=== PATIENT | male | born 1950 | race Caucasian/White ===

== ENCOUNTER 2021-03-06 11:33 | Inpatient (IN) | payer MEDICARE, BC ==
[2021-03-06] VITALS (11 sets, daily range): BP systolic 129–185; BP diastolic 73–99; BMI 34.5
[~2021-03-06] VITALS: Ht 172.7 cm; Wt 97.5 kg
--- NOTE | ~2021-03-06 | EC ---
PATIENT:ELVA ROSENBAUM DATE OF SERVICE: 03/06/21 SEX: M MEDICAL RECORD: [id number] DATE OF : 54 LOCATION:[place] [address] AGE OF PATIENT: 70 ADMISSION DATE: 03/06/21 REFERRING PHYSICIAN: INTERPRETING PHYSICIAN: WESTLEY GARCIA MD ECHOCARDIOGRAM REPORT ECHO CHARGES 4 ECHO COMPLETE Date: 03/07/21 CLINICAL DIAGNOSIS: CHF H/O AVR ECHOCARDIOGRAPHIC MEASUREMENTS (adult normal given) AC root (d.<3.7cm) 2.7 cm LV Septum d (<1.2 cm> 1.5 cm Valve Excursion 1.3 cm LV Septum (systole) 2.2 cm Left Atria (s.<4.0cm> 4.5 cm LVPW d(<1.2cm) 1.4 cm RV (d.<2.3cm) 2.7 cm LVPW (sytole) 2.3 cm LV diastole(<5.6CM) 5.9 cm MV E-F(>70mm/sec) cm LV systole 3.4 cm LVOT Diameter 1.8 cm MV exc.(>10mm) cm Est.ejection fraction (50-75%) % DOPPLER: LVIT cm/sec A 66.0 cm/sec E 84.0 cm/sec LA cm/sec RVSP 32.3 mmHg LVOT 95.0 cm/sec AOP1/2T m/s Asc. Ao 243 cm/sec RVOT 92.0 cm/sec RA cm/sec PA 129 cm/sec AV Gradient Peak 24.0 mmHg AV Mean 12.0 mmHg AV Area 1.0 cm MV Gradient Peak 3.8 mmHg MV Mean 1.5 mmHg MV Area cm COMMENTS: Towel Hemmer: 1 GEORGE GOLDSMITHOE Finisher Tailor Apprentice: 5 Dr. Garcia TAPE# PACS Pericardial Effusion N DATE OF SERVICE: CLINICAL diagnoses: 1. Congestive heart failure. 2. History of aortic valve replacement. INTERPRETATION: Technically difficult study, overall normal LV chamber size with moderate global LV contractile dysfunction. Left atrial chamber mildly dilated. Right atrium and right ventricular chamber size and function appears normal. Aortic valve/prosthesis is not well visualized, but appears normal. ECHOCARDIOGRAM REPORT [id number] ELVA ROSENBAUM Trace aortic regurgitation. Mitral valve appears normal. Trace mitral regurgitation. Tricuspid valve appears normal. Trace tricuspid regurgitation. Pulmonic valve not well visualized. Trivial pulmonary regurgitation. No pericardial effusion visualized. IMPRESSION: Technically difficult study, overall moderate global left ventricular contractile dysfunction with an ejection fraction of 40%. TRANSINT:[id number] Voice Confirmation ID: [id number] DOCUMENT ID: [id number] WESTLEY GARCIA MD CC: [id number] DICTATION DATE: 03/07/21 1342 COAT JOINER: 03/07/212023 ADM IN [facility] [address] [place] [id number]
--- NOTE | 2021-03-06 15:30 | NUR ---
ADMITTED FROM OSH. WAS ON BIPAP 40%, TITRATED TO 6LNC AND IS SATTING 97%. PER EMS, HE IS DOING MUCH BETTER THAN THIS AM. EKG OBTAINED S/T ST DEPRESSION ON MONITOR. DR. CASANOVA ROUNDED AND ORDERS RECEIVED.
--- NOTE | 2021-03-06 16:12 | NUR ---
DR. TOMLINSON PAGED PER ORDER AND CONSULTED. ORDERS RECEIVED.
--- NOTE | 2021-03-06 16:13 | NUR ---
CARDIOLOGY PAGED. AWAITING CALL BACK.
--- NOTE | 2021-03-06 16:16 | NUR ---
EKG DONE, SHOWS NSR W/ LVH.
--- NOTE | 2021-03-06 16:23 | NUR ---
DR. MORRIS CALLED AND CONSULTED. DR. TOMLINSON WANTED TO CLARIFY LASIX. DR. MORRIS ORDERS LASIX AT HIGHER DOSE IV.
[2021-03-06 16:24] LABS: TROPONIN-I 0.058 ng/mL (0.000-0.060)
[2021-03-06] MEDS ORDERED: ELIQUIS5 MG PO (18:11)
[2021-03-06] MEDS ORDERED: GLIMEPIRIDE4 MG PO (18:12)
[2021-03-06] MEDS ORDERED: TRICOR145 MG PO (18:12)
[2021-03-06] MEDS ORDERED: LEVOXYL25 MCG PO (18:14)
[2021-03-06] MEDS ORDERED: LEVOXYL25 MCG (18:14)
[2021-03-06] MEDS ORDERED: TRICOR145 MG (18:14)
[2021-03-06] MEDS ORDERED: JARDIANCE25 MG (18:14)
[2021-03-06] MEDS ORDERED: CEPHALEXIN250 M1 (18:14)
[2021-03-06] MEDS ORDERED: LANTUS SOL100 UNIT/2 (18:14)
[2021-03-06] MEDS ORDERED: SINGULAIR10 MG PO (18:15)
[2021-03-06] MEDS ORDERED: FUROSEMIDE20 MG PO (18:15)
[2021-03-06] MEDS ORDERED: K-DUR20 MEQ PO (18:16)
[2021-03-06] MEDS ORDERED: LOPRESSOR25 MG PO (18:16)
[2021-03-06] MEDS ORDERED: NEXIUM20 MG PO (18:17)
[2021-03-06] MEDS ORDERED: SYNTHROID25 MCG PO (18:17)
[2021-03-06] MEDS ORDERED: BAYER CHEWABLE81 MG PO (18:17)
[2021-03-07] VITALS (23 sets, daily range): BP systolic 103–157; BP diastolic 56–102
--- NOTE | 2021-03-07 01:35 | NUR ---
PT C/O "FEELING CLAUSTROPHOBIC" WHILE USING BIPAP, STATES "I JUST CAN'T DO IT ANYMORE. I'VE NEVERE BEEN ABLE TO WEAR THE MASKS." SWITCHED TO 4.5L O2 NC, SAT 95-96%.
[2021-03-07 04:20] LABS: BASOPHILS 0.6 % (0-2); EOSINOPHILS 0.3 % (0-7); HEMATOCRIT 30.3 % (42.0-54.0); LYMPHOCYTES 11.8 % (15-50); MCH 29.2 pg (26.0-34.0); MCHC 32.9 g/dL (31.0-37.0); MCV 88.7 fL (80.0-100.0); MEAN PLATELET VOLUME 7.3 fL (7.4-10.4); NEUTROPHILS 79.3 % (40-80); PLATELET COUNT 249 10x3/uL (130-400); RBC 3.41 10x6/uL (4.20-6.10); WBC 7.4 10x3/uL (4.8-10.8)
[2021-03-07 04:42] LABS: ALBUMIN 2.6 g/dL (3.4-5.0); ANION GAP 8.1 mmol/L (8-16); BILIRUBIN - TOTAL 0.19 mg/dL (0.2-1.3); CALCIUM 8.1 mg/dL (8.5-10.1); CARBON DIOXIDE 33.5 mmol/L (21.0-32.0); CREATININE - SERUM 5.2 mg/dL (0.6-1.3); POTASSIUM - SERUM 5.6 mmol/L (3.5-5.1); PROTEIN - SERUM 6.6 g/dL (6.4-8.2); THYROID STIMULATING HORMONE 2.76 uIU/mL (0.36-3.74)
[2021-03-07 14:41] LABS: BILIRUBIN NEGATIVE (NEGATIVE); KETONE NEGATIVE (NEGATIVE); NITRITE NEGATIVE (NEGATIVE); UROBILINOGEN NORMAL mg/dL (< 2)
[2021-03-07 14:42] LABS: CREATININE - URINE 25.1 mg/dL (30-125); PRO/CRE RATIO URINE 8.1 mg/g; PROTEIN - URINE 202.1 mg/dL (0.0-11.9)
[2021-03-07 14:46] LABS: BACTERIA FEW HPF (NONE SEEN); SQUAMOUS EPITHELIAL 0-5 HPF (0-4)
[2021-03-07 15:59] LABS: ANION GAP 7.3 mmol/L (8-16); CARBON DIOXIDE 33.1 mmol/L (21.0-32.0); CREATININE - SERUM 5.7 mg/dL (0.6-1.3); POTASSIUM - SERUM 5.4 mmol/L (3.5-5.1)
--- NOTE | 2021-03-07 21:35 | NUR ---
FSBS 58; D50W ADMINISTERED, PER ORDER. OFFERED GRAPE JUICE, JELLO, PUDDING, ULISES CRACKERS; PT ACCEPTED AND CONSUMED ALL BUT ULISES CRACKERS.
--- NOTE | 2021-03-07 23:10 | NUR ---
BIPAP PLACED AT THIS TIME.
[2021-03-08] VITALS (23 sets, daily range): BP systolic 108–164; BP diastolic 61–87; Ht 172.7 cm; Wt 97.5 kg
--- NOTE | 2021-03-08 03:54 | NUR ---
PT REQUESTING TO REMOVE BIPAP AT THIS TIME. 2L O2 NC PLACED, SAT 94-96%.
[2021-03-08 04:40] LABS: BASOPHILS 0.5 % (0-2); EOSINOPHILS 1.3 % (0-7); HEMATOCRIT 28.3 % (42.0-54.0); HEMOGLOBIN 9.4 g/dL (13.5-17.5); LYMPHOCYTES 15.9 % (15-50); MCH 29.6 pg (26.0-34.0); MCHC 33.3 g/dL (31.0-37.0); MCV 88.9 fL (80.0-100.0); MEAN PLATELET VOLUME 7.5 fL (7.4-10.4); MONOCYTES 12.4 % (2-11); NEUTROPHILS 69.9 % (40-80); PLATELET COUNT 213 10x3/uL (130-400); RBC 3.18 10x6/uL (4.20-6.10); WBC 6.2 10x3/uL (4.8-10.8)
[2021-03-08 05:02] LABS: ALBUMIN 2.5 g/dL (3.4-5.0); ANION GAP 9.6 mmol/L (8-16); BILIRUBIN - TOTAL 0.18 mg/dL (0.2-1.3); CALCIUM 8.1 mg/dL (8.5-10.1); CARBON DIOXIDE 34.1 mmol/L (21.0-32.0); CREATININE - SERUM 6.1 mg/dL (0.6-1.3); PHOSPHOROUS 5.7 mg/dL (2.5-4.9); POTASSIUM - SERUM 4.7 mmol/L (3.5-5.1); PROTEIN - SERUM 6.3 g/dL (6.4-8.2)
--- NOTE | 2021-03-08 06:44 | NUR ---
0510 RECEIVED CRITICAL GLUCOSE OF 37 FROM LAB. ADMINISTERED D50W, PER ORDERS. OFFERED JUICE, JELLO, ULISES CRACKERS; PT ACCEPTED AND CONSUMED ALL. 0605 FSBS 128. 0640 FSBS 151.
[2021-03-09] VITALS (16 sets, daily range): BP systolic 106–167; BP diastolic 73–98
[2021-03-09 04:27] LABS: BASOPHILS 0.6 % (0-2); EOSINOPHILS 2.2 % (0-7); HEMATOCRIT 29.1 % (42.0-54.0); HEMOGLOBIN 9.7 g/dL (13.5-17.5); LYMPHOCYTES 14.2 % (15-50); MCH 29.4 pg (26.0-34.0); MCHC 33.4 g/dL (31.0-37.0); MCV 88.2 fL (80.0-100.0); MEAN PLATELET VOLUME 7.5 fL (7.4-10.4); MONOCYTES 9.6 % (2-11); NEUTROPHILS 73.4 % (40-80); PLATELET COUNT 216 10x3/uL (130-400); RDW 13.9 % (11.5-14.5); WBC 7.6 10x3/uL (4.8-10.8)
[2021-03-09 04:41] LABS: ALBUMIN 2.4 g/dL (3.4-5.0); ANION GAP 11.4 mmol/L (8-16); BILIRUBIN - TOTAL 0.19 mg/dL (0.2-1.3); CALCIUM 8.2 mg/dL (8.5-10.1); CARBON DIOXIDE 31.1 mmol/L (21.0-32.0); CREATININE - SERUM 6.7 mg/dL (0.6-1.3); MAGNESIUM - SERUM 1.9 mg/dL (1.8-2.4); POTASSIUM - SERUM 4.5 mmol/L (3.5-5.1); PROTEIN - SERUM 6.4 g/dL (6.4-8.2)
[2021-03-09 04:45] LABS: PHOSPHOROUS 4.2 mg/dL (2.5-4.9)
--- NOTE | 2021-03-09 07:15 | NUR ---
I have reviewed this patient and I concur with the Shift Assessment completed by the Licensed Practical Nurse today this shift.
[2021-03-09 10:12] LABS: HEPATITIS C ANTIBODY <0.1 S/CO RAT (0.0-0.9)
--- NOTE | 2021-03-09 15:26 | NUR ---
PATIENT TO ROOM 2107 VIA W/C WITH BROTHER AT SIDE. OXYGEN AT 2 LITERS. TRANSFERED TO BED WITH ASSIST OF 2. DENIES ANY NEEDS, SIDE RAILS UP XS 2 AND CALL LIGHT IN REACH.
--- NOTE | 2021-03-09 22:57 | NUR ---
REPORT RECEIVED. PT A&O, UP IN BED WATCHING TV. NO S/S OF DISTRESS OBSERVED. RR EVEN & UNLABORED ON 2L. PT HAS HX OF CHF, ORDERED TELE. IV TO L AC PATENT, SL, SWAB CAP IN USE. BED LOCKED AND LOWERED, CL IN REACH. WILL CONT POC.
[2021-03-10 00:15] VITALS: BP 149/64
[2021-03-10 05:00] LABS: BASOPHILS 0.5 % (0-2); EOSINOPHILS 3.4 % (0-7); HEMOGLOBIN 9.7 g/dL (13.5-17.5); LYMPHOCYTES 12.8 % (15-50); MCH 29.3 pg (26.0-34.0); MCHC 33.2 g/dL (31.0-37.0); MCV 88.2 fL (80.0-100.0); MEAN PLATELET VOLUME 7.5 fL (7.4-10.4); MONOCYTES 9.4 % (2-11); NEUTROPHILS 73.9 % (40-80); PLATELET COUNT 204 10x3/uL (130-400); RBC 3.29 10x6/uL (4.20-6.10); RDW 13.9 % (11.5-14.5); WBC 5.8 10x3/uL (4.8-10.8)
[2021-03-10 05:05] VITALS: BP 154/68
[2021-03-10 05:20] LABS: ALBUMIN 2.9 g/dL (3.4-5.0); ANION GAP 11.1 mmol/L (8-16); BILIRUBIN - TOTAL 0.27 mg/dL (0.2-1.3); CALCIUM 8.5 mg/dL (8.5-10.1); CARBON DIOXIDE 29.9 mmol/L (21.0-32.0); CREATININE - SERUM 6.3 mg/dL (0.6-1.3); PROTEIN - SERUM 6.7 g/dL (6.4-8.2)
[2021-03-10 07:32] VITALS: BP 167/86
--- NOTE | 2021-03-10 09:30 | NUR ---
PATIENT AAOX4 RESP EVEN AND NON LABORED, NO S/S OF DISTRESS, MEDICATIONS ADMINSITERED WITH NO COMPLICATIONS, NAIK REMOVED WITH NO COMPLICATIONS, NO FURTHER NEEDS AT THIS TIME, MARA VILLEDA
[2021-03-10 11:10] VITALS: BP 168/72
--- NOTE | 2021-03-10 11:19 | NUR ---
I have reviewed this patient and I concur with the Shift Assessment completed by the Licensed Practical Nurse today this shift.
[2021-03-10 15:16] VITALS: BP 174/80
--- NOTE | 2021-03-10 19:44 | NUR ---
REPORT RECEIVED. PT A&O, UP IN BED WITH CHICKEN SEXER AT BEDSIDE OBTAINING V/S. NO S/S OF DISTRESS OBSERVED. RR EVEN & UNLABORED ON 2L. SR 74 ON TELE. IVS TO R FA SL AND L AC SL. BED LOCKED AND LOWERED, CL IN REACH. WILL CONT POC.
[2021-03-10 20:50] VITALS: BP 160/81
[2021-03-11 00:23] VITALS: BP 153/75
[2021-03-11 04:58] VITALS: BP 163/64
[2021-03-11 06:01] LABS: BASOPHILS 0.5 % (0-2); EOSINOPHILS 3.4 % (0-7); HEMOGLOBIN 9.6 g/dL (13.5-17.5); LYMPHOCYTES 12.4 % (15-50); MCH 29.1 pg (26.0-34.0); MCHC 33.2 g/dL (31.0-37.0); MCV 87.9 fL (80.0-100.0); MEAN PLATELET VOLUME 7.6 fL (7.4-10.4); MONOCYTES 8.1 % (2-11); NEUTROPHILS 75.6 % (40-80); PLATELET COUNT 210 10x3/uL (130-400); RBC 3.31 10x6/uL (4.20-6.10); RDW 13.8 % (11.5-14.5); WBC 6.4 10x3/uL (4.8-10.8)
[2021-03-11 06:26] LABS: ALBUMIN 3.3 g/dL (3.4-5.0); BILIRUBIN - TOTAL 0.26 mg/dL (0.2-1.3); CALCIUM 8.7 mg/dL (8.5-10.1); CARBON DIOXIDE 29.1 mmol/L (21.0-32.0); CREATININE - SERUM 6.4 mg/dL (0.6-1.3); POTASSIUM - SERUM 5.1 mmol/L (3.5-5.1)
--- NOTE | 2021-03-11 07:22 | NUR ---
PT IS RESTING IN BED WITH EYES CLOSED. RESPIRATIONS ARE EVEN AND UNLABORED. PT IS EASILY AROUSED WITH VERBAL STIMULATION AND IS AAO X 4 UPON AROUSAL. PT BROTHER IS AT BEDSIDE. PT DENIES PRESENCE OF PAIN/N/V AT THIS TIME. PT DENIES PRESENCE OF DYSPNEA/SOB AT THIS TIME. INCENTIVE SPIROMETER WITHIN REACH AND ENCOURAGED. BLE WITH REDNESS AND SORES. BILATEREAL PEDAL PULSES ARE PALP AND CAP REFILL IS < 3. PIV TO RIGHT FA IS SL AND FLUSHES WITHOUT DIFFICULTY. PIV TO LEFT AC IS SL AND FLUSHES WITHOUT DIFFICULTY. BED IS IN THE LOWEST POSITION. CALL LIGHT MANUEL BEDSIDE TABLE ARE WITIHN REACH. SIDE RAILS X 2. PT AND PT BROTHER DENY FURTHER NEEDS. WILL CONT TO MONITOR.
[2021-03-11 08:09] VITALS: BP 173/87
--- NOTE | 2021-03-11 10:38 | NUR ---
DR MORRIS AT BEDSIDE. VERBAL ORDERS RECD TO OBTAIN BLADDER SCAN. BLADDER SCAN SHOWS 880ML OF URINE RETAINED IN BLADDER. PT DENIES URGE TO VOID AT THIS TIME. VERBAL ORDERS RECD FROM DR MORRIS TO INSERT INDWELLING CATHETER. INDWELLING CATHETER 16FR INSERTED USING STERILE TECHNIQUE. 10ML STERILE SALINE USED TO INFLATE STABILIZATION BALLOON. 900ML OF CLEAR LIGHT YELLOW URINE EMPTIED FROM NAIK CATHETER. DR MORRIS NOTIFIED. PT DENIES PRESENCE OF PAIN/N/V. BED IS IN THE LOWEST POSITION. CALL LIGHT AND BEDSIDE TABLE ARE WITHIN REACH. SIDE RAILS X 2. STAT LOCK PLACED TO RIGHT THIGH. BROTHER AT BEDSIDE. WILL CONT TO MONITOR.
[2021-03-11 11:41] VITALS: BP 171/76
--- NOTE | 2021-03-11 12:18 | NUR ---
Nutrition Reassessment/Follow-up: Spoke with pt and brother. Did not eat breakfast this AM 2/2 nausea; denies vomiting. Diet: Renal ADA PO intake: 62% avg x 7 meals No new wt; last wt: 214.9# (03/08) Labs noted: K+ 5.1, BUN 52, Cre 6.4, GFR 9, Glu 142, Alb 3.3 Meds noted: Zofran, Florajen, Protonix, Humalog Nutrition Diagnosis: -Inadequate energy intake R/T nausea AEB poor PO intake noted. -Altered nutrition-related lab values R/T kidney dysfunction, DM AEB BUN 52, Cre 6.4, GFR 9, elev Glu. Nutrition Intervention: -Nutrition needs and goals unchanged since initial assessment. -Encourage PO intake and honor food preferences within diet restrictions. -Need new wt. -RD follow-up: 03/15
--- NOTE | 2021-03-11 12:49 | MORECARE ---
CASE MANAGEMENT DISCHARGE SUMMARY PATIENT: ELVA ROSENBAUM UNIT: [id number] ADM DATE: 03/06/21 AGE: 70 : 52 SEX: M ROOM/BED: D.2107 AUTHOR: ENEDOC PHYSICIAN: REFERRING PHYSICIAN: PAOLO CASANOVA MD DATE OF SERVICE: 03/11/21 Case Management Discharge Planning Summary DCP REVIEW SUMMARY ANTICIPATED D/C DATE: EXPECTED LOS : CASE STATUS: DCP Initiated INITIAL REVIEW: 03/11/2021 INITIAL REVIEWER: Yadira Muñoz FINAL DISCHARGE DISPOSITION: : FINAL REVIEWER: FINAL REVIEW DATE: DCP Focus Questions & Answers QUESTION: ANSWER : PATIENT: ELVA ROSENBAUM ENCOUNTER: [id number] MEDICAL RECORD#: [id number] ADMISSION DATE: 03/06/2021 DISCHARGE DATE: ATTENDING MD: CHERYL NEVAREZ : AGE: 70 MARITAL STATUS: S DC PLAN ID: [id number] FACILITY: [facility] PRINTED ON: 03/11/21 12:49 CT All edits/amendments must be made on the electronic document DICTATION DATE: 03/11/21 124 MANAGER OF DRILLING: DM 03/11/21 1248 RPT#: [id number] DC DATE: STATUS: ADM IN [facility] [address] [place] [address] END OF REPORT
--- NOTE | 2021-03-11 13:11 | MORECARE ---
CASE MANAGEMENT DISCHARGE SUMMARY PATIENT: ELVA ROSENBAUM UNIT: [id number] ADM DATE: 03/06/21 AGE: 70 : 52 SEX: M ROOM/BED: D.2107 AUTHOR: ENE,DOC PHYSICIAN: REFERRING PHYSICIAN: PAOLO CASANOVA MD DATE OF SERVICE: 03/11/21 Case Management Discharge Planning Summary COMMENTS ENTERED DATE: 03/11/21 13:00 CT COMMENT TYPE: Discharge Planning REVIEWER: Yadira Muñoz CM met with patient and his brother in the room to discuss discharge planning/needs. He states that he lives alone in [place]. States that he is independent with all ADL's and AIDL's. States he has no steps to enter his home. States that he has been to the LTACH at [facility] and they have an inpatient rehab at [place] that he would like a referral to in [place]. I called [phone] and they transferred me to admissions. I left a message on the answering machine. I have called 3 times without success. I will call again this evening. DCP REVIEW SUMMARY ANTICIPATED D/C DATE: EXPECTED LOS : CASE STATUS: DCP Initiated INITIAL REVIEW: 03/11/2021 INITIAL REVIEWER: Yadira Muñoz FINAL DISCHARGE DISPOSITION: : FINAL REVIEWER: FINAL REVIEW DATE: DCP Focus Questions & Answers DCP Evaluation QUESTION: ANSWER Patient's current cognitive status: : *Oriented to person, place, situation, time and present Patient's ability to cope with chronic illness : d. No chronic illness Patient gives permission to discuss discharge plans with: (name, relationship and number) : Freedom Rosenbaum - oraer - [phone] Patient and/or caregiver agree upon recommended discharge plan? : Yes Family / Caregiver's ability to cope with chronic illness: : a. Adequate (ability to meet patient's medical needs, ensures patient attends medical appts.) Functional screen assessment: : Unable to manage ADLs without immediate ongoing assistance Family / Caregiver's ability to cope with chronic illness: : a. Adequate (ability to meet patient's medical needs, ensures patient attends medical appts.) Physical Status: : Partial care dependence Living Arrangements: : Home Alone with Support Partial Dependence, assistance required for: : Ambulation / Mobility Patient with capacity for self-care or can be cared for in same environment as prior to hospitalization? : No Baseline cognitive status: : *Oriented to person, place, situation, time and present Results of this evaluation have been discussed with: : Patient Results of this evaluation have been discussed with: : Family Physical environment modification needed / anticipated for discharge: : Yes Physical environment referral comments (if applicable): : Referral to inpatient rehab Pharmacy name(s): : [facility] in [place] PCP is [facility] in [place] Does Patient have transportation to get home and to follow-up medical appointments when discharged from the hospital? : Yes Comments: : Patient drives Would patient like to participate in any Care Coordination programs (if applicable): : Not applicable Equipment in use: : Walker - Rolling Equipment in use: : Cane - Single Leg Mental health screen: : No mental health history Psychosocial status: : Adult with physical limitations Abuse/Neglect: : None Resources / Services in place: : None DCP Re-evaluation QUESTION: ANSWER Would patient like to participate in any Care Coordination programs (if applicable): : Not applicable PATIENT: ELVA ROSENBAUM ENCOUNTER: [id number] MEDICAL RECORD#: [id number] ADMISSION DATE: 03/06/2021 DISCHARGE DATE: ATTENDING MD: CHERYL NEVAREZ : AGE: 70 MARITAL STATUS: S DC PLAN ID: [id number] FACILITY: [facility] PRINTED ON: 03/11/21 13:11 CT All edits/amendments must be made on the electronic document DICTATION DATE: 03/11/21 131 CHIEF JAILER: MITRA 03/11/21 1311 RPT#: [id number] DC DATE: STATUS: ADM IN [facility] [address] [place] [address] END OF REPORT
[2021-03-11 15:15] VITALS: BP 146/75
--- NOTE | 2021-03-11 15:35 | MORECARE ---
CASE MANAGEMENT DISCHARGE SUMMARY PATIENT: ELVA ROSENBAUM UNIT: [id number] ADM DATE: 03/06/21 AGE: 70 : 52 SEX: M ROOM/BED: D.2107 AUTHOR: ENE,DOC PHYSICIAN: REFERRING PHYSICIAN: PAOLO CASANOVA MD DATE OF SERVICE: 03/11/21 Case Management Discharge Planning Summary COMMENTS ENTERED DATE: 03/11/21 15:26 CT COMMENT TYPE: Discharge Planning REVIEWER: Yadira Muñoz CM reached admissions at [facility]. I faxed referral to [phone]. CM will continue to follow and assist with discharge planning/needs. ENTERED DATE: 03/11/21 13:00 CT COMMENT TYPE: Discharge Planning REVIEWER: Yadira Muñoz CM met with patient and his brother in the room to discuss discharge planning/needs. He states that he lives alone in [place]. States that he is independent with all ADL's and AIDL's. States he has no steps to enter his home. States that he has been to the LTACH at [facility] and they have an inpatient rehab at [place] that he would like a referral to in [place]. I called [phone] and they transferred me to admissions. I left a message on the answering machine. I have called 3 times without success. I will call again this evening. DCP REVIEW SUMMARY ANTICIPATED D/C DATE: EXPECTED LOS : CASE STATUS: DCP Initiated INITIAL REVIEW: 03/11/2021 INITIAL REVIEWER: Yadira Muñoz FINAL DISCHARGE DISPOSITION: : FINAL REVIEWER: FINAL REVIEW DATE: DCP Focus Questions & Answers DCP Evaluation QUESTION: ANSWER Patient's current cognitive status: : *Oriented to person, place, situation, time and present Patient's ability to cope with chronic illness : d. No chronic illness Patient gives permission to discuss discharge plans with: (name, relationship and number) : Freedom Rosenbaum - oraer - [phone] Patient and/or caregiver agree upon recommended discharge plan? : Yes Family / Caregiver's ability to cope with chronic illness: : a. Adequate (ability to meet patient's medical needs, ensures patient attends medical appts.) Functional screen assessment: : Unable to manage ADLs without immediate ongoing assistance Family / Caregiver's ability to cope with chronic illness: : a. Adequate (ability to meet patient's medical needs, ensures patient attends medical appts.) Physical Status: : Partial care dependence Living Arrangements: : Home Alone with Support Partial Dependence, assistance required for: : Ambulation / Mobility Patient with capacity for self-care or can be cared for in same environment as prior to hospitalization? : No Baseline cognitive status: : *Oriented to person, place, situation, time and present Results of this evaluation have been discussed with: : Patient Results of this evaluation have been discussed with: : Family Physical environment modification needed / anticipated for discharge: : Yes Physical environment referral comments (if applicable): : Referral to inpatient rehab Pharmacy name(s): : [facility] in [place] PCP is [facility] in [place] Does Patient have transportation to get home and to follow-up medical appointments when discharged from the hospital? : Yes Comments: : Patient drives Would patient like to participate in any Care Coordination programs (if applicable): : Not applicable Equipment in use: : Walker - Rolling Equipment in use: : Cane - Single Leg Mental health screen: : No mental health history Psychosocial status: : Adult with physical limitations Abuse/Neglect: : None Resources / Services in place: : None DCP Re-evaluation QUESTION: ANSWER Would patient like to participate in any Care Coordination programs (if applicable): : Not applicable PATIENT: ELVA ROSENBAUM ENCOUNTER: [id number] MEDICAL RECORD#: [id number] ADMISSION DATE: 03/06/2021 DISCHARGE DATE: ATTENDING MD: CHERYL NEVAREZ : AGE: 70 MARITAL STATUS: S DC PLAN ID: [id number] FACILITY: [facility] PRINTED ON: 03/11/21 15:35 CT All edits/amendments must be made on the electronic document DICTATION DATE: 03/11/211534 TIE BINDER: MITRA 03/11/211534 RPT#: [id number] DC DATE: STATUS: ADM IN [facility] [address] [place] [address] END OF REPORT
[2021-03-11 21:34] VITALS: BP 158/81
--- NOTE | 2021-03-12 03:10 | NUR ---
I have reviewed this patient and I concur with the Shift Assessment completed by the Licensed Practical Nurse today this shift.
[2021-03-12 03:50] VITALS: BP 169/87
[2021-03-12 07:06] LABS: BASOPHILS 0.5 % (0-2); EOSINOPHILS 2.1 % (0-7); HEMATOCRIT 31.8 % (42.0-54.0); HEMOGLOBIN 10.4 g/dL (13.5-17.5); LYMPHOCYTES 8.8 % (15-50); MCH 28.6 pg (26.0-34.0); MCHC 32.5 g/dL (31.0-37.0); MCV 87.9 fL (80.0-100.0); MEAN PLATELET VOLUME 7.7 fL (7.4-10.4); MONOCYTES 7.5 % (2-11); NEUTROPHILS 81.1 % (40-80); PLATELET COUNT 238 10x3/uL (130-400); RBC 3.62 10x6/uL (4.20-6.10); RDW 13.7 % (11.5-14.5); WBC 7.9 10x3/uL (4.8-10.8)
[2021-03-12 07:46] LABS: ALBUMIN 3.2 g/dL (3.4-5.0); BILIRUBIN - TOTAL 0.24 mg/dL (0.2-1.3); CARBON DIOXIDE 25.8 mmol/L (21.0-32.0); CREATININE - SERUM 6.2 mg/dL (0.6-1.3); POTASSIUM - SERUM 4.8 mmol/L (3.5-5.1); PROTEIN - SERUM 7.2 g/dL (6.4-8.2)
--- NOTE | 2021-03-12 07:46 | NUR ---
PT LYING IN BED WITH EYES CLOSED AND HOB ELEVATED 30 DEGREES. RAISES TO VERBAL STIMULI. RESP EVEN AND UNLABORED. O2 VIA NC AT [address] FC DRAINING CLEAR YELLOW URINE. CLIR. BED IN LOWEST POSITON. SIDE RAILS X2
[2021-03-12 07:50] VITALS: BP 151/89
[2021-03-12 10:55] VITALS: BP 170/80
--- NOTE | 2021-03-12 13:55 | NUR ---
I have reviewed this patient and I concur with the Shift Assessment completed by the Licensed Practical Nurse today this shift.
[2021-03-12 15:59] VITALS: BP 142/67
[2021-03-12 21:33] VITALS: BP 160/79
--- NOTE | 2021-03-12 23:43 | NUR ---
INITIAL ROUNDS COMPLETED AT 1920 HRS. PT DENIED ANY DISCOMFORT. ASSESSMENT COMPLETED AT 2010 HRS. VSS. SR PER CM HR 82. ALERT AND ORIENTED TO PERSON, PLACE AND TIME. ERWIN. PALPABLE PERIPHERAL PULSES. O2 2LNC. LUNGS DIMINISHED IN BASES BILAT. ABD SOFT WITH ACTIVE BS NOTED. IV TO LAC AND RFASL. BILAT LWER LEGS RED,SCALY WITH SCABS NOTED. REPOSITIONED IN BED AT THAT TIME. PM FSBS 136. NO COVERAGE NEEDED. PM MEDS GIVEN. NAIK DRAINING YELLOW URINE. PT CURRENTLY RESTING WITH EYES CLOSED. RESP EVEN AND REGULAR. SR UP X2, CALL LIGHT WITHIN REACH.
--- NOTE | 2021-03-13 01:13 | NUR ---
PT RESTING WITH EYES CLOSED. RESP EVEN AND REGULAR. SR UP X2, CALL LIGHT WITHIN REACH.
--- NOTE | 2021-03-13 03:38 | NUR ---
PT REPOSITIONED IN BED PER REQUEST.
[2021-03-13 05:07] VITALS: BP 165/78
[2021-03-13 05:44] LABS: BASOPHILS 0.5 % (0-2); EOSINOPHILS 2.1 % (0-7); HEMATOCRIT 29.5 % (42.0-54.0); HEMOGLOBIN 9.9 g/dL (13.5-17.5); LYMPHOCYTES 12.4 % (15-50); MCH 29.4 pg (26.0-34.0); MCHC 33.5 g/dL (31.0-37.0); MCV 87.6 fL (80.0-100.0); MEAN PLATELET VOLUME 7.9 fL (7.4-10.4); MONOCYTES 8.2 % (2-11); NEUTROPHILS 76.8 % (40-80); PLATELET COUNT 209 10x3/uL (130-400); RBC 3.36 10x6/uL (4.20-6.10); RDW 13.3 % (11.5-14.5); WBC 6.8 10x3/uL (4.8-10.8)
[2021-03-13 06:01] LABS: ALBUMIN 3.1 g/dL (3.4-5.0); ANION GAP 13.9 mmol/L (8-16); BILIRUBIN - TOTAL 0.28 mg/dL (0.2-1.3); CALCIUM 8.8 mg/dL (8.5-10.1); CARBON DIOXIDE 25.6 mmol/L (21.0-32.0); CREATININE - SERUM 6.2 mg/dL (0.6-1.3); POTASSIUM - SERUM 4.5 mmol/L (3.5-5.1)
--- NOTE | 2021-03-13 06:38 | NUR ---
VSS THROUGHOUT NGIHT. SR PER CM. PT DENIED ANY DISCOMFORT. AM FSBS 154. 2 UNITS HUMALOG GIVEN SUB-Q TO UPPER R ARM. NEEDS MET; WILL CONTINUE TO MONITOR.
--- NOTE | 2021-03-13 07:00 | NUR ---
RECEIVED REPORT. ASSUMED CARE OF PATIENT. PATIENT RESTING IN BED WITH EYES CLOSED. CALL LIGHT WITHIN REACH. F/C PATENT TO GRAVITY. WHITE BOARD UPDATED, BEDSIDE SHIFT REPORT COMPLETE. NO DISTRESS.
[2021-03-13 07:59] VITALS: BP 162/85
--- NOTE | 2021-03-13 10:45 | NUR ---
MEDICATED FOR NAUSEA PRIOR TO PT. NO DISTRES.
[2021-03-13] MEDS ORDERED: FLUTICASONE PRO16 GM NASAL (11:08)
[2021-03-13] MEDS ORDERED: HYDRALAZINE20 MG/ML IV (11:08)
[2021-03-13] MEDS ORDERED: ATROVENT 0.02%2.5 ML UPD (11:08)
[2021-03-13] MEDS ORDERED: LASIX40 MG PO (11:08)
[2021-03-13] MEDS ORDERED: MELATONIN 3 MG1 TAB PO (11:09)
[2021-03-13] MEDS ORDERED: HUMALOG 30100 UNITS/ SC (11:09)
[2021-03-13] MEDS ORDERED: ZOFRAN ODT4 MG/UDTAB PO (11:09)
[2021-03-13] MEDS ORDERED: FLORAJEN DIGES1 EACH PO (11:09)
[2021-03-13] MEDS ORDERED: XALATAN 0.0052.5 ML EACH EYE (11:09)
--- NOTE | 2021-03-13 11:53 | NUR ---
FSBS 194. 2 UNITS HUMALOG ADMINISTERED PER SLIDING SCALE. NO DISTRESS.
--- NOTE | 2021-03-13 12:40 | NUR ---
REPORT CALLED TO MARTIN AT [phone], PATIENT BEING ADMITTED TO ROOM 130.
--- NOTE | 2021-03-13 12:50 | NUR ---
[facility] CALLED, ETA 45MINS TO ONE HOUR TO TRANSPORT PATIENT.
--- NOTE | 2021-03-13 13:14 | NUR ---
20 GAUGE IV REMOVED FROM RIGHT FA. CATHETER TIP INTACT. NO BLEEDING FROM SITE. 18 GAUGE IV REMOVED FROM LEFT AC, CATHETER TIP INTACT. NO BLEEDING FROM SITE. 2X2 GAUZE APPLIED TO EACH SITE AND SECURED WITH BANDAID. PATIENT TOLERATED IV REMOVAL WELL. TELEMETRY REMOVED AND RETURNED TO ICU DATA INTEGRITY SPECIALIST AT THIS TIME. DISCHARGE INSTRUCITONS PROVIDED TO PATIENT AND FAMILY. 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 CURRENTLY AWAITING PICKUP VIA [employer] AT THIS TIME.
--- NOTE | 2021-03-13 13:30 | NUR ---
[facility]
--- NOTE | 2021-03-13 14:02 | MORECARE ---
CASE MANAGEMENT DISCHARGE SUMMARY PATIENT: ELAV ROSENBAUM UNIT: [id number] ADM DATE: 03/06/21 AGE: 70 : 52 SEX: M ROOM/BED: D.2107 AUTHOR: ENE,DOC PHYSICIAN: REFERRING PHYSICIAN: PAOLO CASANOVA MD DATE OF SERVICE: 03/13/21 Case Management Discharge Planning Summary COMMENTS ENTERED DATE: 03/11/21 15:26 CT COMMENT TYPE: Discharge Planning REVIEWER: Yadira Muñoz CM reached admissions at [facility]. I faxed referral to [phone]. CM will continue to follow and assist with discharge planning/needs. ENTERED DATE: 03/11/21 13:00 CT COMMENT TYPE: Discharge Planning REVIEWER: Yadira Muñoz CM met with patient and his brother in the room to discuss discharge planning/needs. He states that he lives alone in [place]. States that he is independent with all ADL's and AIDL's. States he has no steps to enter his home. States that he has been to the LTACH at [facility] and they have an inpatient rehab at [facility] that he would like a referral to in [place]. I called [phone] and they transferred me to admissions. I left a message on the answering machine. I have called 3 times without success. I will call again this evening. DCP REVIEW SUMMARY ANTICIPATED D/C DATE: EXPECTED LOS : CASE STATUS: DCP Initiated INITIAL REVIEW: 03/11/2021 INITIAL REVIEWER: Yadira Muñoz FINAL DISCHARGE DISPOSITION: : FINAL REVIEWER: FINAL REVIEW DATE: DCP Focus Questions & Answers DCP Evaluation QUESTION: ANSWER Family / Caregiver's ability to cope with chronic illness: : a. Adequate (ability to meet patient's medical needs, ensures patient attends medical appts.) Patient and/or caregiver agree upon recommended discharge plan? : Yes Patient gives permission to discuss discharge plans with: (name, relationship and number) : Freedom Rosenbaum - brother - [phone] Patient's ability to cope with chronic illness : d. No chronic illness Patient's current cognitive status: : *Oriented to person, place, situation, time and present Physical Status: : Partial care dependence Family / Caregiver's ability to cope with chronic illness: : a. Adequate (ability to meet patient's medical needs, ensures patient attends medical appts.) Functional screen assessment: : Unable to manage ADLs without immediate ongoing assistance Partial Dependence, assistance required for: : Ambulation / Mobility Living Arrangements: : Home Alone with Support Results of this evaluation have been discussed with: : Family Results of this evaluation have been discussed with: : Patient Baseline cognitive status: : *Oriented to person, place, situation, time and present Patient with capacity for self-care or can be cared for in same environment as prior to hospitalization? : No Physical environment modification needed / anticipated for discharge: : Yes Physical environment referral comments (if applicable): : Referral to inpatient rehab Pharmacy name(s): : [facility] in [place] PCP is [facility] in [place] Does Patient have transportation to get home and to follow-up medical appointments when discharged from the hospital? : Yes Would patient like to participate in any Care Coordination programs (if applicable): : Not applicable Comments: : Patient drives Equipment in use: : Cane - Single Leg Equipment in use: : Walker - Rolling Mental health screen: : No mental health history Psychosocial status: : Adult with physical limitations Abuse/Neglect: : None Resources / Services in place: : None DCP Re-evaluation QUESTION: ANSWER Would patient like to participate in any Care Coordination programs (if applicable): : Not applicable PATIENT: ELVA ROSENBAUM ENCOUNTER: [id number] MEDICAL RECORD#: [id number] ADMISSION DATE: 03/06/2021 DISCHARGE DATE: 03/13/2021 ATTENDING MD: CHERYL NEVAREZ : AGE: 70 MARITAL STATUS: S DC PLAN ID: [id number] FACILITY: [facility] PRINTED ON: 03/13/21 14:02 CT All edits/amendments must be made on the electronic document DICTATION DATE: 03/13/211401 ECOLOGY TEACHER: MITRA 03/13/21 140 RPT#: [id number] DC DATE:03/13/21 STATUS: DIS IN [facility] [address] [place] [address] END OF REPORT
== END 2021-03-13 13:52 | DRG 291 ==
LOC: D.ICU 11:33 → D.M2 03-09 15:13
PROVIDERS: Emergency Medicine; Internal Medicine Nephrology; ADMIT Emergency Medicine; ATTEND Emergency Medicine
DX: I13.0 Hypertensive heart and chronic kidney disease with heart failure and stage 1 through stage 4 chronic kidney disease, or unspecified chronic kidney disease (principal); J96.01 Acute respiratory failure with hypoxia; J96.02 Acute respiratory failure with hypercapnia; I50.23 Acute on chronic systolic (congestive) heart failure; J18.9 Pneumonia, unspecified organism; N17.9 Acute kidney failure, unspecified; L03.119 Cellulitis of unspecified part of limb; E87.3 Alkalosis; E78.5 Hyperlipidemia, unspecified; E11.22 Type 2 diabetes mellitus with diabetic chronic kidney disease; N18.9 Chronic kidney disease, unspecified; E03.9 Hypothyroidism, unspecified; Z79.84 Long term (current) use of oral hypoglycemic drugs; Z91.19 Patient's noncompliance with other medical treatment and regimen